=== PATIENT | female | born 1970 ===

== ENCOUNTER 2020-12-24 19:25 | Emergency (ER) | payer OTHER ==
[~2020-12-24] VITALS: Ht 160 cm; Wt 63.0 kg
[2020-12-24] MEDS ORDERED: BACTRIM DS TAB1 EACH PO (22:31)
== END 2020-12-24 22:46 | disposition home or self-care (01) ==
LOC: ER 19:25
DX: N39.0 Urinary tract infection, site not specified (principal); B34.9 Viral infection, unspecified; Z03.818 Encounter for observation for suspected exposure to other biological agents ruled out